=== PATIENT | male | born 1975 | race Hispanic/Latino ===

== ENCOUNTER 2019-05-10 08:04 | Outpatient (CLI) | payer OTHER ==
--- NOTE | 2019-05-10 08:54 | RAD ---
XR Knee Lt 3 View: 05/10/2019 8:22 AM CLINICAL INDICATION: Stepped into hole with left knee pain COMPARISON: None. FINDINGS: Bones: No acute fracture or subluxation demonstrated. Joints: There is mild joint capsular distention. Soft Tissue: Normal. IMPRESSION: Mild joint capsular distention without acute osseous abnormality.
== END 2019-05-10 08:05 | disposition home or self-care (01) ==
LOC: NAV LAB 08:04
PROVIDERS: ATTEND Family Medicine
DX: M25.562 Pain in left knee (principal); M25.862 Other specified joint disorders, left knee